=== PATIENT | male | born 1940 | race African-American/Black ===

== ENCOUNTER → 2016-11-30 | Outpatient (CLI) | payer MEDICARE | LOC: COL.RAD 07:26 | DX: I71.4 Abdominal aortic aneurysm, without rupture (principal); Z87.891 Personal history of nicotine dependence ==

== ENCOUNTER → 2018-06-13 | Outpatient (CLI) | payer MEDICARE | LOC: COL.RAD 12:24 | DX: M47.816 Spondylosis without myelopathy or radiculopathy, lumbar region (principal); M48.07 Spinal stenosis, lumbosacral region; M43.16 Spondylolisthesis, lumbar region ==

== ENCOUNTER 2019-03-10 06:52 | Day surgery (SDC) | payer MEDICARE ==
[2019-03-10] VITALS (505 sets, daily range): BP systolic 111–147; BP diastolic 66–92; PULSE 56–65; TEMP 97.6–98.8; O2SAT 98–100
[~2019-03-10] VITALS: Ht 177.8 cm; Wt 56.7 kg
[~2019-03-10 06:52] MED LIST: ASPIRIN 81M81 MG/TA2 PO; GLUCOPHAGE500 MG/TAB PO; LIPITOR 10MG10 MG PO; NORVASC 10MG10 MG PO; TOPROL XL 50MG50 MG PO; XYZAL5 MG PO; ZESTORETIC 12.51 TA1 PO
[2019-03-10] MEDS ORDERED: NORVASC 10MG10 MG PO (07:22)
[2019-03-10] MEDS ORDERED: ASPIRIN 81M81 MG/TA2 PO (07:22)
[2019-03-10] MEDS ORDERED: LIPITOR 10MG10 MG PO (07:23)
[2019-03-10] MEDS ORDERED: XYZAL5 MG PO (07:24)
[2019-03-10] MEDS ORDERED: ZESTORETIC 12.51 TA1 PO (07:26)
[2019-03-10] MEDS ORDERED: GLUCOPHAGE500 MG/TAB PO (07:27)
[2019-03-10] MEDS ORDERED: TOPROL XL 50MG50 MG PO (07:28)
[2019-03-10 07:45] LABS: HEMOGLOBIN 15.7 g/dl (13.5-18.0); MEAN CELL VOLUME 94 fl (80.0-100.0); MEAN CORPUSCULAR HEMOGLOBIN 32 pg (27.0-31.0); MEAN CORPUSCULAR HGB CONC 34 g/dl (33.0-37.0); PLATELET COUNT 254 K/mm3 (130-400); RED BLOOD COUNT 4.92 M/mm3 (4.20-5.60); REDCELL DISTRIBUTION WIDTH-CV 12.7 % (11.5-14.5)
[2019-03-10 07:57] LABS: INR 0.9 (0.8-3.0); PROTHROMBIN TIME 10.7 SECONDS (9.7-12.8)
[2019-03-10 07:59] LABS: CALCIUM 10.1 mg/dL (8.4-10.2); CREATININE, serum 0.78 (0.66-1.25); PARTIAL THROMBOPLASTIN TIME 26.8 SECONDS (26.0-37.0); POTASSIUM 3.4 mmol/L (3.4-5.0)
--- NOTE | 2019-03-10 09:21 | NUR ---
SEE MERGE DOCUMENTATION FOR MEDICATION ADMINISTRATION TIMES AND INTRA/POST PROCEDURE SEDATION ASSESSMENTS. PLAN FOR RIGHT RADIAL APPROACH; BARBEAU TEST POSITIVE.
--- NOTE | 2019-03-10 12:28 | NUR ---
Pt brought to ICU room 6 by laboratory associate. Bedside report received. Pt has TR band in place to right wrist. Scant drainage noted. Pt oriented to room and call light as well as flat time and restrictions to right arm. Pt denies any concerns at this time just upset from being hungry. Tray has been ordered. Will continue to follow.
--- NOTE | 2019-03-10 12:49 | NUR ---
Pt refusing temps until he receives his food
--- NOTE | 2019-03-10 19:18 | NUR ---
Report given to Leny GEORGE and care transfered.
--- NOTE | 2019-03-10 19:18 | NUR ---
Report received. Patient resting in bed. 3mls of air removed from TR band at this time. Call light in reach.
--- NOTE | 2019-03-10 19:36 | NUR ---
Resting in bed. Assessment completed at this time. Bases bilaterally diminshed otherwise clear. Heart sounds normal S1 and S2. Pulses strong throughout. Right radial band 4 mls of air removed- will remove band if no drainage present after 5 mins. Denies any pain at this time. Patient alert and orientated. IV left hand infusing without difficulty. 1/2 NS at 100mls an hour x1 bag as ordered. Nitro 10mcg/hr or 3mls per hour infusing. Order was discontinued. Clarified order with Dr. Clark. Continue to 03/11 at 0800. Order renewed at this time.
--- NOTE | 2019-03-10 20:10 | NUR ---
TR band removed and bandaide placed. Tolerated well.
--- NOTE | 2019-03-10 21:15 | NUR ---
Right wrist CDI. Bandaide free of drainage. Patient denies pain at this time. Call light in reach.
[2019-03-11] VITALS (24 sets, daily range): BP systolic 113–133; BP diastolic 56–81; PULSE 60–64; TEMP 97.6–99; O2SAT 98–100
--- NOTE | 2019-03-11 | NUR ---
Resting in bed. Denies needs. Denies pain. Right radial site CDI. Call light in reach.
[2019-03-11 05:05] LABS: BASO % 0.6 % (0.0-2.0); EOS # 0.2 (0.0-0.7); GRAN # 4.5 (1.4-6.5); GRAN % 63.5 % (42.2-75.2); HEMATOCRIT 41.7 % (42.0-52.0); HEMOGLOBIN 14.2 g/dl (13.5-18.0); LYMPH # 1.6 (1.2-3.4); MEAN CELL VOLUME 94 fl (80.0-100.0); MEAN CORPUSCULAR HEMOGLOBIN 32 pg (27.0-31.0); MEAN CORPUSCULAR HGB CONC 34 g/dl (33.0-37.0); MEAN PLATELET VOLUME 11.2 fl (7.4-10.4); MONO # 0.7 (0.1-0.6); MONO % 9.3 % (1.7-9.3); PLATELET COUNT 242 K/mm3 (130-400); RED BLOOD COUNT 4.44 M/mm3 (4.20-5.60); REDCELL DISTRIBUTION WIDTH-CV 12.9 % (11.5-14.5)
[2019-03-11 05:18] LABS: CALCIUM 9.5 mg/dL (8.4-10.2); CREATININE, serum 0.69 (0.66-1.25); POTASSIUM 3.6 mmol/L (3.4-5.0)
--- NOTE | 2019-03-11 05:54 | NUR ---
Patient had uneventful night. Right radial site remained free of complications. Resting in bed this AM. Denies needs. Call light in reach.
--- NOTE | 2019-03-11 07:16 | NUR ---
Report given to DORIS Hutson
--- NOTE | 2019-03-11 07:16 | NUR ---
Report recieved from DORIS Michele. Patient denies pain or needs at this time. Right radial cath site. CDI with bandaid in place. Nitro gtt running at ordered rate and verified. Care assumed.
--- NOTE | 2019-03-11 09:03 | NUR ---
Dr. Clark rounds on patient at this time. Orders as entered CPOE.
--- NOTE | 2019-03-11 09:05 | NUR ---
Initial visit; Patient thanked Economics Professor for looking in on him and offering God's blessings.
[2019-03-11] MEDS ORDERED: LIPITOR 80MG80 MG PO (09:35)
[2019-03-11] MEDS ORDERED: BRILINTA90 MG PO (09:35)
--- NOTE | 2019-03-11 11:30 | NUR ---
Discharge education provided to patient and . Understanding verbalized. IV discontinued and patient leaves unit ambulatory with all belongings sent with.
== END 2019-03-11 11:34 | disposition home or self-care (01) ==
LOC: COL.CAR 06:52 → ICU 11:20 → COL.CAR 03-11 11:34
PROVIDERS: Internal Medicine Cardiovascular Disease; Nurse Practitioner
DX: I25.110 Atherosclerotic heart disease of native coronary artery with unstable angina pectoris (principal); R94.39 Abnormal result of other cardiovascular function study; I10 Essential (primary) hypertension; E11.9 Type 2 diabetes mellitus without complications; F17.210 Nicotine dependence, cigarettes, uncomplicated; I38 Endocarditis, valve unspecified; Z95.5 Presence of coronary angioplasty implant and graft; Z85.89 Personal history of malignant neoplasm of other organs and systems; Z82.49 Family history of ischemic heart disease and other diseases of the circulatory system; Z79.82 Long term (current) use of aspirin; Z79.84 Long term (current) use of oral hypoglycemic drugs; Z82.3 Family history of stroke
CPT/HCPCS: OP; J0583; J1644; J2250; J3010; Q9967

== ENCOUNTER 2019-03-22 17:44 | Inpatient (IN) | payer MEDICARE ==
[~2019-03-22] VITALS: Ht 177.8 cm; Wt 56.8 kg
[~2019-03-22 17:44] MED LIST changes: +BRILINTA90 MG PO; +LIPITOR 80MG80 MG PO
[2019-03-22 18:11] LABS: COLLECTION METHOD CLEAN CATCH
[2019-03-22 18:17] LABS: BASO % 0.3 % (0.0-2.0); EOS # 0.1 (0.0-0.7); EOS % 0.4 % (0-4.0); GRAN # 10.3 (1.4-6.5); GRAN % 83.6 % (42.2-75.2); HEMOGLOBIN 11.1 g/dl (13.5-18.0); LYMPH # 1.2 (1.2-3.4); LYMPH % 9.8 % (20.0-51.0); MEAN CELL VOLUME 97 fl (80.0-100.0); MEAN CORPUSCULAR HEMOGLOBIN 32 pg (27.0-31.0); MEAN CORPUSCULAR HGB CONC 33 g/dl (33.0-37.0); MEAN PLATELET VOLUME 11.5 fl (7.4-10.4); MONO # 0.7 (0.1-0.6); MONO % 5.4 % (1.7-9.3); PLATELET COUNT 396 K/mm3 (130-400); RED BLOOD COUNT 3.44 M/mm3 (4.20-5.60); REDCELL DISTRIBUTION WIDTH-CV 14.1 % (11.5-14.5)
[2019-03-22 18:20] LABS: MUCOUS Present /lpf; PH 5 (5-8); SQUAMOUS EPITHELIAL None Seen /hpf; URINE APPEARANCE Clear; URINE BACTERIA None Seen /hpf; URINE BILIRUBIN Negative (NEGATIVE); URINE BLOOD Negative (NEGATIVE); URINE COLOR Straw; URINE GLUCOSE 3+ (NEGATIVE); URINE KETONE 1+ (NEGATIVE); URINE LEUKOCYTE ESTERASE Negative (NEGATIVE); URINE NITRATE Negative (NEGATIVE); URINE PROTEIN(semi-quant) Negative (NEGATIVE); URINE RBC None Seen /hpf; URINE UROBILINOGEN Negative (NEGATIVE)
[2019-03-22 18:23] LABS: HEMATOCRIT 33.5 % (42.0-52.0)
[2019-03-22 18:31] LABS: ALANINE AMINOTRANSFERASE 69 U/L (21-72); ALBUMIN 4.2 gm/dL (3.5-5.0); ALKALINE PHOSPHATASE 360 U/L (50-136); ANION GAP 13 mmol/L (7-16); AST,SGOT 67 U/L (15-37); BILIRUBIN,TOTAL 0.8 mg/dL (0.0-1.0); BLOOD UREA NITROGEN 49 mg/dL (9-20); CARBON DIOXIDE 26 mmol/L (22-30); CHLORIDE 99 mmol/L (98-107); CREATININE, serum 0.99 (0.66-1.25); POTASSIUM 4.2 mmol/L (3.4-5.0); SODIUM 138 mmol/L (137-145); TOTAL PROTEIN 7.6 gm/dL (6.4-8.2)
[2019-03-22 18:40] LABS: ACETONE,SERUM NEGATIVE
[2019-03-22 18:54] LABS: GLUCOSE 690 mg/dL (74-106)
[2019-03-22] MEDS ORDERED: INVOKAMET3 PO (19:06)
[2019-03-22 19:40] LABS: TROPONIN-I 0.016 ng/mL (0.000-0.035)
[2019-03-22 20:00] VITALS: BP 117/53; PULSE 54; TEMP 97.5
[2019-03-22 20:06] LABS: LIPASE 6868 U/L (23-300)
[2019-03-22 22:35] VITALS: BP 117/53; PULSE 56; TEMP 97.5
--- NOTE | 2019-03-22 23:27 | NUR ---
2230: fINGER STICK BLOOD GLUCOSE OBTAINED READING 573. JACI ARITA NOTIFED. ORDERS RECEIVED FOR HIGH DOSE SLIDING SCALE INSULIN AND RECHECK POC GLUCOSE IN ONE HOUR. NS INFUSING @ 125ML/HR. SEE EMAR FOR NOVOLG 14 UNITS SQ GIVEN ORDERED. PATIENT A/O X 4. ANSWERS QUESTIONS APPROPRIATELY. ABLE TO STATE FULL NAME AND DATE OF , MONTH AND YEAR, PRESIDENT, APPROPRIATELY. DENIES C/O PAIN OR DISCOMFORT.
[2019-03-23] VITALS (7 sets, daily range): BP systolic 111–130; BP diastolic 41–65; PULSE 48–63; TEMP 97.4–98.6
--- NOTE | 2019-03-23 01:00 | NUR ---
0003 REPEAT POC GLUCOSE ONE HOUR POST 14 UNITS SQ NOVOLG OBTAINED @ 499. JACI ARITA NOTIFIED. ORDERS RECIVED FOR 1 LITER NS BOLUS. NO INSULIN AT THIS TIME AND RECHECK POC GLUCOSE IN ONE HOUR. NS BLOUS INITIATED ORDERED.
--- NOTE | 2019-03-23 02:05 | NUR ---
0120: 1 liter NS bolus complete. POC Glucose 330. See flow sheet for vital signs obtained. Patient has no complaints of pain or discomfort. Lizz ARITA notified. Orders received to give 8 units Novolg and recheck POC glucose @ 0400. Currently patient asleep in bed. bed exit alarm armed. Call light within reach.
[2019-03-23 07:40] LABS: BASO % 0.3 % (0.0-2.0); EOS # 0.3 (0.0-0.7); EOS % 2.2 % (0-4.0); LYMPH # 2.2 (1.2-3.4); LYMPH % 18.8 % (20.0-51.0); MEAN CELL VOLUME 98 fl (80.0-100.0); MEAN CORPUSCULAR HGB CONC 34 g/dl (33.0-37.0); MEAN PLATELET VOLUME 11.3 fl (7.4-10.4); PLATELET COUNT 352 K/mm3 (130-400); REDCELL DISTRIBUTION WIDTH-CV 14.4 % (11.5-14.5)
[2019-03-23 07:48] LABS: HEMATOCRIT 27.4 % (42.0-52.0); HEMOGLOBIN 9.2 g/dl (13.5-18.0); MEAN CORPUSCULAR HEMOGLOBIN 33 pg (27.0-31.0)
[2019-03-23 08:06] LABS: ALBUMIN 3.4 gm/dL (3.5-5.0); BILIRUBIN,TOTAL 0.6 mg/dL (0.0-1.0); CHOLESTEROL RISK RATIO 5.3; CREATININE, serum 0.8 (0.66-1.25); TOTAL PROTEIN 6.4 gm/dL (6.4-8.2)
--- NOTE | 2019-03-23 08:15 | NUR ---
Pt assessment completed and charted. Pt laying in bed, sleeping, awakens to voice. Pt A&O. Pt denies pain, dizziness, SOB, N/V/D, chest pain. pt to have CT of abdomen this morning. Pt on tele, bradycardic, room air. Pulses strong bilaterally. Labs drawn this morning and glucose resulted 61, CHASTITY Gregory notified. Pt NPO, but to have juice once back from CT. Glucometer read 150. Pt appears asymptomatic to low BS. LS clear. NS @ 125ml/hr running to RFA IV w/o complications. No other concerns expressed at this time.
--- NOTE | 2019-03-23 10:12 | NUR ---
Patient lives at home with his nephew (phone: [phone]) in [place], [place] and plans to return upon discharge. The patient's friend (Evelyn Montez phone: [phone]) also helps with support of the patient as needed. Patient uses a walker and/or cane for mobility assistance, his primary care physician is Gisselle Garcia, his pharmacy is [facility], and he does not have advance directives complete or on file at this time. The patient's daughter Anna Proctor lives in [place] and her phone number is [phone]. No further needs and social group worker will follow as needed.
--- NOTE | 2019-03-23 11:59 | NUR ---
Pt back from CT, sleeping in bed, awakens to voice. IVF running at 125 ml/hr to RFA IV w/o complications, tele back on. Pt BS checked w/ glucometer, reading 408, rechecked w/ other glucometer, reading 360 in left hand. Pt has had 3 juices and crackers. Discussed w/ hospitalist and PA, awaiting decision.
--- NOTE | 2019-03-23 12:56 | NUR ---
Pt started on levemir and 1/2 NS at 100 ml/hr. ACCU checks Q4. pt received 12 units Novolog and 10 units levemir. Will recheck BS prior to lunch. Pt denies other concerns at this time.
--- NOTE | 2019-03-23 17:12 | NUR ---
Verbal telephone order for venous glucose check. pt also checked w/ glucometer, reading 393. pt had lunch and received insulin per jun.
--- NOTE | 2019-03-23 18:27 | NUR ---
Venous BS resulted 288. Pt received 8 units per sliding scale and 5 units scheduled. Pt currently eating dinner at this time.
--- NOTE | 2019-03-23 19:20 | NUR ---
Report rcvd from DORIS Parker. Pt is sleeping in bed during report, no c/o pain or discomfort at this time. Assessment completed. Pt WBG is very unstable right now. Will continue to monitor. Call light, Urinal, and personal belongings within reach. No further concerns at this time.
[2019-03-24 04:00] VITALS: BP 106/49; PULSE 63; TEMP 98.5
[2019-03-24 04:56] LABS: BASO % 0.2 % (0.0-2.0); EOS # 0.3 (0.0-0.7); EOS % 3.2 % (0-4.0); HEMATOCRIT 24.8 % (42.0-52.0); HEMOGLOBIN 8.5 g/dl (13.5-18.0); LYMPH # 1.8 (1.2-3.4); LYMPH % 20.5 % (20.0-51.0); MEAN CELL VOLUME 97 fl (80.0-100.0); MEAN CORPUSCULAR HEMOGLOBIN 33 pg (27.0-31.0); MEAN CORPUSCULAR HGB CONC 34 g/dl (33.0-37.0); MEAN PLATELET VOLUME 10.9 fl (7.4-10.4); MONO # 0.6 (0.1-0.6); MONO % 7.2 % (1.7-9.3); PLATELET COUNT 290 K/mm3 (130-400); RED BLOOD COUNT 2.56 M/mm3 (4.20-5.60); REDCELL DISTRIBUTION WIDTH-CV 14.6 % (11.5-14.5)
[2019-03-24 05:05] LABS: ALBUMIN 2.9 gm/dL (3.5-5.0); CALCIUM 8.7 mg/dL (8.4-10.2); CREATININE, serum 0.69 (0.66-1.25); TOTAL PROTEIN 5.6 gm/dL (6.4-8.2)
--- NOTE | 2019-03-24 05:20 | NUR ---
Pt's Blood Sugars have been varied through the night. No need for Insulin as it has been below 150. Pt has voiced no c/o pain or discomfort. Resting well. No further concerns at this time. Call light and phone within reach.
--- NOTE | 2019-03-24 07:24 | NUR ---
Report given to DORIS Duran. Pt had an uneventful night. Maintained BGL through the night. Pt very happy about that. No further concerns.
[2019-03-24 07:54] VITALS: BP 103/53; PULSE 60; TEMP 98.2
--- NOTE | 2019-03-24 16:17 | NUR ---
AMI met with the patient to review discharge plan and to discuss PT's recommendation of outpatient PT and OT's recommendation of home health is able. The patient reports that he plans to return home with his nephew, Keyshawn, upon discharge. He states that he would be interested and prefer home health. AMI provided the patient with [email or web address]'s list of home health agencies that serve [place]. The patient would like to look the list over with his nephew, before making a decision. AMI to follow up with the patient tomorrow morning.
[2019-03-24 17:06] VITALS: BP 101/40; PULSE 61; TEMP 97.8
--- NOTE | 2019-03-24 19:06 | NUR ---
Report received from DORIS Duran
[2019-03-24 19:13] VITALS: BP 109/48; PULSE 61; TEMP 98.2
--- NOTE | 2019-03-24 21:26 | NUR ---
Resting in bed. Assessment complete. Lungs clear. Heart sounds normal. Bowels active x4. Pulse strong throughout. No edema noted. Denies pain. INT right forearm flushed without complications. Denies needs at this time. Call light in reach.
[2019-03-25] VITALS (10 sets, daily range): BP systolic 98–136; BP diastolic 50–60; PULSE 58–75; TEMP 97.3–98.9
--- NOTE | 2019-03-25 02:30 | NUR ---
Resting in bed. Call light in reach.
--- NOTE | 2019-03-25 03:53 | NUR ---
Resting in bed asleep. Call light in reach.
--- NOTE | 2019-03-25 06:18 | NUR ---
Patient had uneventful night. Resting in bed this AM. Call light in reach.
--- NOTE | 2019-03-25 06:36 | NUR ---
Report given to DORIS Duran
[2019-03-25 07:27] LABS: CALCIUM 8.8 mg/dL (8.4-10.2); CREATININE, serum 0.66 (0.66-1.25); POTASSIUM 3.8 mmol/L (3.4-5.0)
[2019-03-25 07:45] LABS: BASO % 0.4 % (0.0-2.0); EOS # 0.4 (0.0-0.7); EOS % 5.5 % (0-4.0); GRAN % 62.4 % (42.2-75.2); LYMPH # 1.8 (1.2-3.4); LYMPH % 22.3 % (20.0-51.0); MEAN CELL VOLUME 99 fl (80.0-100.0); MEAN CORPUSCULAR HGB CONC 33 g/dl (33.0-37.0); MEAN PLATELET VOLUME 12.6 fl (7.4-10.4); MONO # 0.7 (0.1-0.6); MONO % 8.4 % (1.7-9.3); PLATELET COUNT 269 K/mm3 (130-400); RED BLOOD COUNT 2.52 M/mm3 (4.20-5.60); REDCELL DISTRIBUTION WIDTH-CV 15.8 % (11.5-14.5)
[2019-03-25 07:49] LABS: HEMOGLOBIN 8.3 g/dl (13.5-18.0); MEAN CORPUSCULAR HEMOGLOBIN 33 pg (27.0-31.0)
[2019-03-25 07:51] LABS: IRON,SERUM 87 ug/dL (35-150)
[2019-03-25 08:00] LABS: TOTAL IRON BINDING CAPACITY 274 ug/dL (261-462)
--- NOTE | 2019-03-25 08:38 | NUR ---
patient is going down to [facility] for stress test at this time
--- NOTE | 2019-03-25 10:21 | NUR ---
AMI followed up with the patient and his friend on preference for home health. The patient chose [facility]. AMI contacted and faxed a referral to Nick at [facility]. Nick reports that they can accept the patient for services. AMI to inform the patient and will continue to follow.
--- NOTE | 2019-03-25 21:00 | NUR ---
Resting in bed. Assessment complete. Lungs clear. Heart sounds normal. Bowels active x4. Pulses strong throughout. No edema noted. INT right forearm without complications. Denies pain. Blood sugar 429. Provided with sliding scale insulin. Will closely monitor.
--- NOTE | 2019-03-25 21:30 | NUR ---
Patient was provided with sliding scale insulin. Venous blood sugar was 151. Lore DEL RIO notified. Hourly glucose checks until blood sugar stable. Patient made aware. Denies needs. Call light in reach.
--- NOTE | 2019-03-25 23:15 | NUR ---
Blood sugar 78. Provided with snack at this time. Patient denies any symptoms. Call light in reach. Will monitor.
[2019-03-26 00:06] VITALS: BP 123/89; PULSE 71; TEMP 97.7
--- NOTE | 2019-03-26 02:05 | NUR ---
Patient remains asymptomatic at this time. Blood sugar 91. Will continue to monitor.
--- NOTE | 2019-03-26 04:04 | NUR ---
Resting in bed. Denies needs. Call light in reach.
[2019-03-26 04:09] VITALS: BP 120/49; PULSE 80
--- NOTE | 2019-03-26 06:35 | NUR ---
Resting in bed this AM. Call light in reach. Blood sugars remained adequate throughout night.
[2019-03-26 06:50] LABS: BASO % 0.4 % (0.0-2.0); EOS # 0.2 (0.0-0.7); EOS % 3.5 % (0-4.0); GRAN # 4.4 (1.4-6.5); LYMPH # 1.5 (1.2-3.4); LYMPH % 21.8 % (20.0-51.0); MEAN CELL VOLUME 100 fl (80.0-100.0); MEAN CORPUSCULAR HGB CONC 33 g/dl (33.0-37.0); MEAN PLATELET VOLUME 12.3 fl (7.4-10.4); MONO # 0.7 (0.1-0.6); MONO % 9.7 % (1.7-9.3); PLATELET COUNT 252 K/mm3 (130-400); RED BLOOD COUNT 2.61 M/mm3 (4.20-5.60); REDCELL DISTRIBUTION WIDTH-CV 16.3 % (11.5-14.5)
[2019-03-26 06:51] LABS: HEMATOCRIT 26.1 % (42.0-52.0); HEMOGLOBIN 8.7 g/dl (13.5-18.0); MEAN CORPUSCULAR HEMOGLOBIN 33 pg (27.0-31.0)
[2019-03-26 07:01] LABS: CALCIUM 8.9 mg/dL (8.4-10.2); CREATININE, serum 0.64 (0.66-1.25); POTASSIUM 4.1 mmol/L (3.4-5.0)
--- NOTE | 2019-03-26 07:10 | NUR ---
Report given to DORIS Ivan
[2019-03-26 07:54] VITALS: BP 131/72; PULSE 62; TEMP 97.5
--- NOTE | 2019-03-26 08:00 | NUR ---
Assessment complete. Pt sitting up on side of bed, A&O x 4. Physical assessment unremarkable. Pt denies pain at this time. Saline lock IV to right forearm without s/s of complications. Teaching done over insulin administration including drawing the medication into the syringe. Pt and pt's verbalize understanding. Pt hesitant to return demonstration of shot at this time, agrees to self administer the next dose with this nurse watching. Questions invited and answered. No further needs reported. Call light in reach.
[2019-03-26] MEDS ORDERED: XYZAL5 MG PO (09:09)
[2019-03-26] MEDS ORDERED: NOVOLIN 70/30 710 ML SQ (09:14)
--- NOTE | 2019-03-26 09:24 | NUR ---
The patient's RN, Marzena, informed AMI that the patient and his friend, Evelyn Montez, would like to speak to AMI. AMI then met with the patient and Evelyn. Evelyn reports that the patient's PCP contacted her and the patient and she is recommending post-acute rehab for the patient upon discharge, to get stronger. The patient reports that he would be interested in seeing if he would be accepted at a SNF. AMI presented and explained the Patient Choice Form and provided them with [employer]'s list of nursing homes. The patient chose 1) [facility] 2) [facility]. Patient Choice Form signed by the patient and he was provided a copy. AMI contacted and faxed a referral to both facilities. SW awaiting their screens. AMI informed the hospitalist of the above information.
--- NOTE | 2019-03-26 09:35 | NUR ---
AMI then attended clinical rounds. The patient is to tentatively discharge today, 03/26. The hospitalist discussed post-acute rehab vs going home if too functional for post-acute rehab and they are unable to accept. The patient was in agreeance to this. AMI then presented and explained the IM form to the patient. The patient verbalized understanding, signed, and he was provided a copy. SW to continue to follow.
--- NOTE | 2019-03-26 11:03 | NUR ---
Ni, at [facility], reports that they are unable to accept the patient under a skilled stay; due to doing well with therapy. SW to inform the patient and his friend, Evelyn, and will continue to follow.
[2019-03-26 11:35] VITALS: BP 133/57; PULSE 56; TEMP 97.7
--- NOTE | 2019-03-26 13:06 | NUR ---
Pt self administers insulin per orders with this nurse watching, complications with administration. Pt performs without hesitation. No questions or needs reported. Call light in reach.
--- NOTE | 2019-03-26 16:16 | NUR ---
The patient's friend, Evelyn, approached AMI to inform that her and the patient have now decided to pursue with going back home with [facility]. AMI met with the patient and confirmed this. AMI notified the hospitalist and his RN. AMI attempted to contact and update Jac at [facility]. AMI left her a voicemail. The patient is to discharge back home with his nephew today, 03/26, and home health services for halfway/PT/OT through [facility]. AMI contacted and faxed the patient's discharge orders to Nick at [facility]. No additional needs at this time.
--- NOTE | 2019-03-26 20:00 | NUR ---
Discharge paperwork reviewed. All questions answered. Denies any other needs at this time. Taken via wheelchair to personal car. driving patient home.
== END 2019-03-26 20:00 | disposition home or self-care (01) | DRG 638 ==
LOC: COL.ER 17:44 → MEDICAL 21:26
PROVIDERS: Emergency Medicine; Internal Medicine; Nurse Practitioner Family; Physician Assistant; ADMIT Internal Medicine
DX: E11.65 Type 2 diabetes mellitus with hyperglycemia (principal); E44.0 Moderate protein-calorie malnutrition; Z68.1 Body mass index [BMI] 19.9 or less, adult; E78.5 Hyperlipidemia, unspecified; I10 Essential (primary) hypertension; I25.10 Atherosclerotic heart disease of native coronary artery without angina pectoris; K86.9 Disease of pancreas, unspecified; D64.9 Anemia, unspecified; Z85.89 Personal history of malignant neoplasm of other organs and systems; Z91.14 Patient's other noncompliance with medication regimen; Z79.84 Long term (current) use of oral hypoglycemic drugs; Z95.818 Presence of other cardiac implants and grafts; Z79.82 Long term (current) use of aspirin
CPT/HCPCS: 99223-AI; 99232-AI; 99239; A9500; J1644; J1815; J2785; J7030; Q9967